=== PATIENT | female | born 1995 | race African-American/Black ===

== ENCOUNTER 2017-11-10 20:50 | Day surgery (SDC) | payer SELFPAY ==
[2017-11-10 21:40] VITALS: BMI 38.3
[2017-11-10 22:08] LABS: Bilirubin Negative (Negative); Blood, Urine Negative (Negative); Clarity CLEAR (Clear); Glucose, Urine (Dipstick) Negative (Negative); Leukocyte Moderate (Negative); Nitrite Negative (Negative); Protein, Urine (Dipstick) Negative (Neg-Trace); Specific Gravity, Urine 1.011 (1.002-1.036); pH, Urine 6.5 (5.0-9.0)
[2017-11-10 22:10] LABS: Bacteria/HPF None Seen HPF (None Seen); Hyaline Casts/LPF 0-3 HYALINE CAST LPF (0-3 Hyaline); Pathc Cast-AUWi Flag 0.87 (0-2.49); RBC/HPF 0-3 HPF (0-3)
[2017-11-10 22:28] LABS: Trichomonas/HPF 2+ HPF (None Seen)
[2017-11-10] MEDS ORDERED: cefTRIAXone\\ROCEPHIN 1 GM VIAL IM SCH (22:45)
[2017-11-10] MEDS ORDERED: Lidocaine 1% PF 5 ML VIAL FS SCH (22:45)
--- NOTE | 2017-11-10 23:43 | PRG ---
DATE OF SERVICE: 11/10/2017 TIME OF SERVICE: 2230 hours. PRESENTING COMPLAINT: Midline lower abdominal pain with dysuria, mild frequency. No back pain, no f ever at 20 weeks gestation. HISTORY OF PRESENT ILLNESS: Ms. Miles is a 22-year-old 2, para 1 at [address] weeks [address] Limon at [facility]. It looks like it is really picked up a lot, but I cannot tell. Patient reports that she has had 1 previous uncomplicated . She reports no complications with this . [employer] REACTOR OPERATOR HISTORY: x1. PAST MEDICAL HISTORY: Denies. PAST SURGICAL HISTORY: Denies. ALLERGIES: Denies. MEDICATIONS: vitamins. SOCIAL HISTORY: Denies tobacco, alcohol, or drug abuse. FAMILY HISTORY: Noncontributory. REVIEW OF SYSTEMS: Noncontributory. PHYSICAL EXAMINATION: GENERAL: Obese black female. VITAL SIGNS: Blood pressure 136/85, pulse 108, respirations 18, temperature 98.1. HEENT: Within normal limits. LUNGS: Clear to auscultation bilaterally. HEART: Regular rhythm. ABDOMEN: Soft and nontender, without palpable contractions. FHTs 140s. No CVA tenderness. Midline lower abdomen tender. PELVIC: Vulva without lesions. Vaginal exam deferred. EXTREMITIES: Without clubbing, cyanosis or edema. Fem cath UA is positive for leukocyte esterase, WBCs and trichomonads. IMPRESSION: Urinary tract infection complicated with Trichomonal vaginitis/cystitis. PLAN: Rocephin 1 gram IM x1, Flagyl 1 gram q.12 hours x2 doses. Keep scheduled followup with Dr. Jese garcia.
== END 2017-11-10 23:20 | disposition home or self-care (01) ==
LOC: L&D/OP 20:50
PROVIDERS: ATTEND Family Medicine
DX: O98.313 Other infections with a predominantly sexual mode of transmission complicating pregnancy, third trimester (principal); A59.03 Trichomonal cystitis and urethritis; Z3A.28 28 weeks gestation of pregnancy; Z79.899 Other long term (current) drug therapy
CPT/HCPCS: 51701; 81001; 96372; 99282; J0696; J2001

== ENCOUNTER 2023-05-16 08:37 | Emergency (ER) | payer SELFPAY ==
[2023-05-16 09:42] LABS: Bilirubin Negative (Negative); Blood, Urine Negative (Negative); CAUTI Indications for Culture Dysuria,urgency,freq; Clarity Clear (Clear); Glucose, Urine (Dipstick) Normal (Negative); Ketone, Urine Negative (Negative); Leukocyte 500 Leu/uL (Negative); Nitrite Negative (Negative); Pregnancy Test - Urine (BHCG) POSITIVE (Negative); Pregu Control Background? CLEAR/WHITE (CLR/WHITE); Pregu Control Bar Appear? YES (CONTROL BAR); Protein, Urine (Dipstick) 20 mg/dL (Neg-Trace); RBC/HPF 0-3 HPF (0-3); Specific Gravity 1.027 (1.002-1.036); Specific Gravity, Urine 1.027 (1.002-1.036); Urobilinogen 3 mg/dL (Less than 2)
[2023-05-16 09:43] LABS: Bacteria/HPF 1+ HPF (None Seen); Sperm/HPF 2+ HPF (None Seen)
[2023-05-16 09:45] LABS: Urine Culture Reflex Yes Yes
== END 2023-05-16 10:06 | disposition home or self-care (01) ==
LOC: ERS 08:37
DX: O21.9 Vomiting of pregnancy, unspecified (principal); O23.41 Unspecified infection of urinary tract in pregnancy, first trimester; N39.0 Urinary tract infection, site not specified; Z3A.01 Less than 8 weeks gestation of pregnancy
CPT/HCPCS: 81001; 81025; 87086; 99284

== ENCOUNTER 2023-08-21 09:47 | Outpatient (CLI) | payer OTHER | END 2023-08-21 09:48 | disposition home or self-care (01) | LOC: BICULT 09:47 | PROVIDERS: ATTEND Nurse Practitioner Women's Health | DX: Z34.82 Encounter for supervision of other normal pregnancy, second trimester (principal); Z3A.20 20 weeks gestation of pregnancy | CPT/HCPCS: 76805 ==

== ENCOUNTER 2023-11-18 15:01 | Emergency (ER) | payer OTHER ==
[2023-11-18 15:30] LABS: Bilirubin Negative (Negative); Blood, Urine Negative (Negative); CAUTI Indications for Culture Pregnancy; Clarity Clear (Clear); Glucose, Urine (Dipstick) Normal (Negative); Ketone, Urine Negative (Negative); Leukocyte 25 Leu/uL (Negative); Nitrite Negative (Negative); Pregnancy Test - Urine (BHCG) POSITIVE (Negative); Pregu Control Background? CLEAR/WHITE (CLR/WHITE); Pregu Control Bar Appear? YES (CONTROL BAR); Protein, Urine (Dipstick) Negative (Neg-Trace); RBC/HPF 0-3 HPF (0-3); Specific Gravity 1.003 (1.002-1.036); Specific Gravity, Urine 1.003 (1.002-1.036); Squamous Epithelial 0-3 HPF (0-3); Urobilinogen Normal mg/dL (Less than 2); WBC/HPF 0-3 HPF (0-3)
[2023-11-18 15:31] LABS: Bacteria/HPF 1+ HPF (None Seen)
[2023-11-18 15:32] LABS: Urine Culture Reflex Yes Yes
[2023-11-18 15:52] LABS: #Basophils Less than 0.03 10x3/uL (0.0-0.2); %Basophils 0.2 % (0.0-1.0); %Eosinophils 0.8 % (0.0-10.0); %Lymphocytes 20.8 % (21.0-51.0); %Monocytes 12.7 % (0.0-10.0); %Neutrophils 64.5 % (42.0-75.0); Hematocrit 37.9 % (36.0-47.0); Hemoglobin 12.7 g/dL (12.0-16.0); Mean Corpuscular HGB CONC 33.5 g/dL (32.0-36.0); Mean Corpuscular Hemoglobin 31.7 pg (27.0-31.0); Mean Corpuscular Volume 94.5 fL (78.0-98.0); Mean Platelet Volume 11.1 fL (7.4-10.4); Platelet Count 144 10x3/uL (130-400); RBC Distribution Width 15.9 % (11.5-14.5); Red Blood Cell (RBC) Count 4.01 mill/uL (4.20-5.40)
[2023-11-18 16:07] LABS: ALT (SGPT) 169 U/L (8-55); AST (SGOT) 74 U/L (5-34); Albumin 2.6 g/dL (3.5-5.0); Alkaline Phosphatase 111 U/L (40-110); Anion Gap 13 mmol/L (10-20); BUN (Urea Nitrogen) 4 mg/dL (7.0-18.7); Bilirubin, Total 0.6 mg/dL (0.2-1.2); Calc. Creatinine Clearance 0 mL/min (70-130); Calcium 9.2 mg/dL (7.8-10.44); Carbon Dioxide 20 mmol/L (22-29); Chloride 109 mmol/L (98-107); Estimated GFR 125; Globulin 3.6 g/dL (2.4-3.5); Glucose 110 mg/dL (70-105); Potassium 3.7 mmol/L (3.5-5.1); Protein, Total 6.2 g/dL (6.0-8.3); Sodium 138 mmol/L (136-145)
[2023-11-18 16:13] LABS: Troponin I Less than 0.010 ng/mL (< 0.028)
[2023-11-18] MEDS ORDERED: Acetaminophen 500 MG TAB ONE (17:12)
== END 2023-11-18 16:36 | disposition home or self-care (01) ==
LOC: ERS 15:01
DX: O99.891 Other specified diseases and conditions complicating pregnancy (principal); R07.9 Chest pain, unspecified; R94.5 Abnormal results of liver function studies; Z3A.33 33 weeks gestation of pregnancy
CPT/HCPCS: 71045; 80053; 81001; 81025; 84484; 85025; 85379; 87086; 93005